=== PATIENT | male | born 1940 | race Caucasian/White ===

== ENCOUNTER → 2016-11-20 | Outpatient (CLI) | payer MEDICARE | END | disposition home or self-care (01) | LOC: CFH 09:21 | PROVIDERS: ATTEND Internal Medicine Cardiovascular Disease | DX: I08.0 Rheumatic disorders of both mitral and aortic valves (principal); I10 Essential (primary) hypertension; E78.5 Hyperlipidemia, unspecified; I25.2 Old myocardial infarction; Z86.73 Personal history of transient ischemic attack (TIA), and cerebral infarction without residual deficits; Z99.2 Dependence on renal dialysis | CPT/HCPCS: 93306 ==

== ENCOUNTER → 2017-11-05 | Outpatient (CLI) | payer MEDICARE | END | disposition home or self-care (01) | LOC: CFH 13:16 | PROVIDERS: ATTEND Nurse Practitioner Primary Care | DX: M19.042 Primary osteoarthritis, left hand (principal); M19.041 Primary osteoarthritis, right hand; M25.742 Osteophyte, left hand; M25.741 Osteophyte, right hand; E55.9 Vitamin D deficiency, unspecified; E78.2 Mixed hyperlipidemia; I12.9 Hypertensive chronic kidney disease with stage 1 through stage 4 chronic kidney disease, or unspecified chronic kidney disease; N18.9 Chronic kidney disease, unspecified; Z79.899 Other long term (current) drug therapy; I25.10 Atherosclerotic heart disease of native coronary artery without angina pectoris; Z86.73 Personal history of transient ischemic attack (TIA), and cerebral infarction without residual deficits ==

== ENCOUNTER → 2017-11-17 | Outpatient (CLI) | payer MEDICARE ==
[~2017-11-17] MED LIST: REGADENOSON 0.4 MG/5 ML SYRINGE ONE
== END ==
LOC: CFH 07:36
PROVIDERS: ATTEND Internal Medicine Cardiovascular Disease
DX: Z02.9 Encounter for administrative examinations, unspecified (principal)
CPT/HCPCS: J2785

== ENCOUNTER → 2018-07-11 | Outpatient (CLI) | payer MEDICARE | END | disposition home or self-care (01) | LOC: CFH 06:59 | PROVIDERS: ATTEND Nurse Practitioner Primary Care | DX: K82.4 Cholesterolosis of gallbladder (principal); E03.9 Hypothyroidism, unspecified; E55.9 Vitamin D deficiency, unspecified; E78.2 Mixed hyperlipidemia; I12.9 Hypertensive chronic kidney disease with stage 1 through stage 4 chronic kidney disease, or unspecified chronic kidney disease; N18.9 Chronic kidney disease, unspecified; Z79.899 Other long term (current) drug therapy; Z87.891 Personal history of nicotine dependence | CPT/HCPCS: 76700 ==

== ENCOUNTER 2018-07-23 11:30 | Emergency (ER) | payer MEDICARE ==
[~2018-07-23] VITALS: Ht 172.7 cm; Wt 77.0 kg
[2018-07-23 12:31] LABS: BASOPHILS % (AUTO) 0 % (0-1); EOSINOPHILS % (AUTO) 0 % (1-7); LYMPHOCYTES # (AUTO) 0.57 x10^3/uL (1-3.4); LYMPHOCYTES % (AUTO) 5 % (22-44); MD NO; MEAN CORPUSCULAR HEMOGLOBIN 29.5 pg (27.5-34.5); MEAN CORPUSCULAR HGB CONC 32.5 g/dL (33.2-36.2); MEAN CORPUSCULAR VOLUME 90.7 fL (81-97); MEAN PLATELET VOLUME 8.7 fL (7.4-10.4); MONOCYTES # (AUTO) 0.78 x10^3/uL (0.2-0.8); MONOCYTES % (AUTO) 7 % (2-9); NEUTROPHILS # (AUTO) 9.69 x10^3/uL (1.8-6.8); NEUTROPHILS % (AUTO) 88 % (42-75); PLATELET COUNT 183 x10^3/uL (130-400); RED BLOOD COUNT 4.71 x10^6/uL (4.38-5.82)
[2018-07-23 12:42] LABS: ALANINE AMINOTRANSFERASE 28 U/L (12-78); ALBUMIN 3.5 g/dL (3.4-5.0); ANION GAP 9 mmol/L (5-15); CALCIUM 9.7 mg/dL (8.5-10.1); CHLORIDE 98 mmol/L (98-107); CREATININE 2.65 mg/dL (0.7-1.3); INTERNATIONAL NORMALIZED RATIO 0.96 (0.93-1.1); PROTHROMBIN TIME 10.1 Seconds (9.6-11.5)
[2018-07-23 12:46] LABS: ALKALINE PHOSPHATASE 99 U/L (45-117); BILIRUBIN,TOTAL 0.6 mg/dL (0.2-1.0); TROPONIN I 0.051 ng/mL (0.000-0.045)
--- NOTE | 2018-07-23 13:47 | NUR ---
unable to obtain accurate med list from pt at this time. med rec not completed.
[2018-07-23] MEDS ORDERED: ALBUTEROL/IPRATROPIUM 2.5MG/0.5MG, 3 ML NPPB ONE (14:00)
[2018-07-23] MEDS ORDERED: ALBUTEROL/IPRATROPIUM 2.5MG/0.5MG, 3 ML ONE (14:55)
--- NOTE | 2018-07-23 14:56 | NUR ---
rt in room now
[2018-07-23 15:11] VITALS: BP 112/61
--- NOTE | 2018-07-23 15:12 | NUR ---
pt informed this rn that he wears o2 at home around 3/4 of the time. md made aware of this pt up for recheck
== END 2018-07-23 16:13 | disposition home or self-care (01) ==
LOC: ED 12:41
DX: J47.9 Bronchiectasis, uncomplicated (principal); R06.00 Dyspnea, unspecified; I10 Essential (primary) hypertension
CPT/HCPCS: 36415; 71046; 71260; 80053; 83880; 84484; 85025; 85610; 85730; 93005; 94640; 99284

== ENCOUNTER 2018-08-13 15:08 | Outpatient (CLI) | payer MEDICARE | END 2018-08-13 23:59 | disposition home or self-care (01) | LOC: CFH 15:08 | PROVIDERS: ATTEND Nurse Practitioner Primary Care | DX: R05 Cough (principal); R06.02 Shortness of breath | CPT/HCPCS: 71046 ==

== ENCOUNTER 2018-09-09 06:43 | Day surgery (SDC) | payer MEDICARE ==
[~2018-09-09] VITALS: Ht 172.7 cm; Wt 80.9 kg
[2018-09-09] MEDS ORDERED: SODIUM CHLORIDE 0.9% 1,000 ML IV SCH (07:09)
[2018-09-09] MEDS ORDERED: ASPIRIN 325 MG TABLET EC PO ONE (07:30)
[2018-09-09] MEDS ORDERED: PLEASE ENTER HEIGHT AND WEIGHT MC SCH (07:30)
[2018-09-09 07:31] VITALS: BP 116/58
[2018-09-09] MEDS ORDERED: Vitamin B PO (07:31)
[2018-09-09] MEDS ORDERED: RANO500T2 PO (07:31)
[2018-09-09] MEDS ORDERED: METO25TA91 PO (07:31)
[2018-09-09] MEDS ORDERED: ISOS120T4 PO (07:31)
[2018-09-09] MEDS ORDERED: NITR0.4T28 SL (07:31)
[2018-09-09] MEDS ORDERED: ATOR40TA78 PO (07:31)
[2018-09-09] MEDS ORDERED: ASPI81TA45 PO (07:31)
[2018-09-09] MEDS ORDERED: ASPIRIN 325 MG TABLET EC ONE (07:37)
[2018-09-09 07:59] LABS: BASOPHILS # (AUTO) 0.06 x10^3/uL (0-0.1); BASOPHILS % (AUTO) 1 % (0-1); EOSINOPHILS # (AUTO) 0.08 x10^3/uL (0-0.4); EOSINOPHILS % (AUTO) 1 % (1-7); LYMPHOCYTES # (AUTO) 1.04 x10^3/uL (1-3.4); LYMPHOCYTES % (AUTO) 14 % (22-44); MD NO; MEAN CORPUSCULAR HEMOGLOBIN 30.1 pg (27.5-34.5); MEAN CORPUSCULAR HGB CONC 31.8 g/dL (33.2-36.2); MEAN CORPUSCULAR VOLUME 94.8 fL (81-97); MONOCYTES # (AUTO) 0.64 x10^3/uL (0.2-0.8); MONOCYTES % (AUTO) 9 % (2-9); NEUTROPHILS % (AUTO) 76 % (42-75); PLATELET COUNT 204 x10^3/uL (130-400); RED BLOOD COUNT 3.83 x10^6/uL (4.38-5.82); RED CELL DISTRIBUTION WIDTH 17.2 % (9.4-14.8)
[2018-09-09 08:09] LABS: ANION GAP 7 mmol/L (5-15); CALCIUM 9.2 mg/dL (8.5-10.1); CHLORIDE 103 mmol/L (98-107); CREATININE 3.89 mg/dL (0.7-1.3)
[2018-09-09] MEDS ORDERED: MIDAZOLAM 1 MG/ML, 2ML ONE (08:56)
[2018-09-09] MEDS ORDERED: FENTANYL PF 100 MCG/2ML ONE (08:56)
[2018-09-09] MEDS ORDERED: LIDOCAINE 1%, 20ML ONE (08:56)
[2018-09-09] MEDS ORDERED: BIVALIRUDIN 250 MG ONE (09:32)
[2018-09-09] MEDS ORDERED: TICAGRELOR 90 MG TABLET ONE (09:32)
[2018-09-09] MEDS ORDERED: VERAPAMIL 2.5 MG/ML, 2ML ONE (10:34)
[2018-09-09] MEDS ORDERED: HEPARIN 1,000 UNITS/ML, 10ML ONE (10:34)
== END 2018-09-09 14:58 | disposition home or self-care (01) ==
LOC: CACL 06:43
PROVIDERS: ATTEND Internal Medicine Cardiovascular Disease
DX: I25.118 Atherosclerotic heart disease of native coronary artery with other forms of angina pectoris (principal); I25.2 Old myocardial infarction; E78.00 Pure hypercholesterolemia, unspecified; I12.9 Hypertensive chronic kidney disease with stage 1 through stage 4 chronic kidney disease, or unspecified chronic kidney disease; E11.22 Type 2 diabetes mellitus with diabetic chronic kidney disease; N18.4 Chronic kidney disease, stage 4 (severe); Z87.891 Personal history of nicotine dependence; Z79.82 Long term (current) use of aspirin; Z79.84 Long term (current) use of oral hypoglycemic drugs
CPT/HCPCS: 36415; 80048; 85025; 92943; 93454; 99156; 99157; C1725; C1760; C1769; C1887; C1894; J0583; J2250; J3010; Q9967; 92920; J1644; 92928

== ENCOUNTER 2019-06-13 14:18 | Inpatient (IN) | payer MEDICARE ==
[~2019-06-13] VITALS: Ht 172.7 cm; Wt 87.6 kg
[~2019-06-13 14:18] MED LIST changes: +ASPI81TA45 PO; +ATOR40TA78 PO; +ISOS120T4 PO; +METO25TA91 PO; +NITR0.4T28 SL; +PROSTATE MED PO; +RANO500T2 PO; -REGADENOSON 0.4 MG/5 ML SYRINGE ONE; +Vitamin B PO
--- NOTE | 2019-06-13 15:20 | NUR ---
PT WC'D TO ROOM 15 W/ C/O R LEG NECROSIS. PT WAS SEEN AT [facility] AND WAS SENT OVER FOR NECROTIC BIG TOE. REDNESS AND OPEN WOUNDS TO TOES AND TOP OF FOOT. DOPPLER ULTRASOUND DID NOT HEAR PEDAL PULSE. WAS ABLE TO FEEL POPLITEAL PULSE. PT NOTED TO HAVE 2+ PITTING EDEMA TO R FOOT. PT DENIES PAIN. CAN STILL FEEL TOUCH/COLDNESS IN FOOT. PT ALSO STATES HE DOES DIALYSIS 2X/WEEK BUT HAS NOT DONE DIALYSIS X 10 DAYS SECONDARY TO AMBULATORY ISSUES W/ FOOT. PT RESTING ON GURNEY. NADN. VSS. MONITORS APPLIED. WARM BLANKET PROVIDED.
--- NOTE | 2019-06-13 15:24 | NUR ---
SPOKE Greta SHAH WHO IS AWARE PT NEEDS SECOND SET OF BLOOD CULTURES DRAWN.
[2019-06-13 15:37] LABS: BASOPHILS % (AUTO) 0 % (0-1); EOSINOPHILS # (AUTO) 0.07 x10^3/uL (0-0.4); EOSINOPHILS % (AUTO) 1 % (1-7); HCT (SEDRATE) 28.1 % (39.2-51.8); LYMPHOCYTES # (AUTO) 0.54 x10^3/uL (1-3.4); LYMPHOCYTES % (AUTO) 8 % (22-44); MD NO; MEAN CORPUSCULAR HEMOGLOBIN 29.4 pg (27.5-34.5); MEAN CORPUSCULAR HGB CONC 32.2 g/dL (33.2-36.2); MEAN CORPUSCULAR VOLUME 91.2 fL (81-97); MEAN PLATELET VOLUME 8.2 fL (7.4-10.4); MONOCYTES # (AUTO) 0.65 x10^3/uL (0.2-0.8); MONOCYTES % (AUTO) 10 % (2-9); NEUTROPHILS % (AUTO) 81 % (42-75); PLATELET COUNT 226 x10^3/uL (130-400); RED CELL DISTRIBUTION WIDTH 18.4 % (9.4-14.8)
[2019-06-13 15:39] LABS: ANION GAP 8 mmol/L (5-15); CHLORIDE 106 mmol/L (98-107)
--- NOTE | 2019-06-13 15:52 | NUR ---
PT RESTING ON GURNEY. NADN. STONE.
[2019-06-13] MEDS ORDERED: CEFAZOLIN PMX 1GM/50ML 50 ML ONE (16:24)
--- NOTE | 2019-06-13 16:45 | NUR ---
PT RESTING ON KALEY. NADN. BENNETTS. PT AWARE OF POC FOR ADMIT.
[2019-06-13] MEDS ORDERED: CEFAZOLIN PMX 1GM/50ML 50 ML IV ONE (17:00)
[2019-06-13] MEDS ORDERED: SODIUM CHLORIDE FLUSH 10ML SYR IVF PRN (17:30)
--- NOTE | 2019-06-13 17:53 | NUR ---
PT RESTING ON GURNEY. NADN. STONE.
--- NOTE | 2019-06-13 18:36 | NUR ---
PT C/O BACK PAIN. PT MOVED TO HOSPITAL BED FROM [facility].
--- NOTE | 2019-06-13 18:50 | NUR ---
REPORT GIVEN TO JAMES, ROMA RN. ALL QUESTIONS ANSWERED. AWAITING PT TRANSPORT.
[2019-06-13] MEDS ORDERED: NITROGLYCERIN SINGLE TAB 0.4 MG SL PRN (19:00)
[2019-06-13] MEDS ORDERED: BISACODYL 10 MG SUPP PR PRN (19:30)
[2019-06-13] MEDS ORDERED: ACETAMINOPHEN 325 MG TABLET PO PRN (19:30)
[2019-06-13] MEDS ORDERED: ONDANSETRON ODT 4 MG PO PRN (19:30)
[2019-06-13] MEDS: ATORVASTATIN 40 MG TABLET PO SCH (21:08)
[2019-06-13] MEDS: RANOLAZINE 500 MG TAB.ER.12H PO SCH (21:08)
[2019-06-13] MEDS: HEPARIN 5,000 UNITS/ML, 1ML SQ SCH (21:08)
[2019-06-13] MEDS: SODIUM CHLORIDE FLUSH 10ML SYR IVF SCH (21:08)
[2019-06-13 22:03] VITALS: BP 112/67
[2019-06-13] MEDS: OXYcodone IR 5MG TABLET PO PRN (22:25)
[2019-06-14 00:43] VITALS: BP 115/71
[2019-06-14] MEDS: OXYcodone IR 5MG TABLET PO PRN (02:31)
[2019-06-14] MEDS: HEPARIN 5,000 UNITS/ML, 1ML SQ SCH ×3 (03:30→20:14)
[2019-06-14 06:06] LABS: BASOPHILS # (AUTO) 0.02 x10^3/uL (0-0.1); BASOPHILS % (AUTO) 0 % (0-1); EOSINOPHILS # (AUTO) 0.22 x10^3/uL (0-0.4); EOSINOPHILS % (AUTO) 4 % (1-7); LYMPHOCYTES # (AUTO) 0.65 x10^3/uL (1-3.4); LYMPHOCYTES % (AUTO) 12 % (22-44); MD NO; MEAN CORPUSCULAR HEMOGLOBIN 29.9 pg (27.5-34.5); MEAN CORPUSCULAR VOLUME 90.5 fL (81-97); MEAN PLATELET VOLUME 8.3 fL (7.4-10.4); MONOCYTES # (AUTO) 0.59 x10^3/uL (0.2-0.8); MONOCYTES % (AUTO) 11 % (2-9); NEUTROPHILS # (AUTO) 3.87 x10^3/uL (1.8-6.8); NEUTROPHILS % (AUTO) 72 % (42-75); PLATELET COUNT 225 x10^3/uL (130-400); RED BLOOD COUNT 2.79 x10^6/uL (4.38-5.82); RED CELL DISTRIBUTION WIDTH 18.1 % (9.4-14.8)
[2019-06-14 06:09] LABS: ANION GAP 11 mmol/L (5-15); CALCIUM 8.8 mg/dL (8.5-10.1); CHLORIDE 109 mmol/L (98-107)
[2019-06-14 06:11] LABS: CREATININE 7.06 mg/dL (0.7-1.3)
[2019-06-14 06:55] VITALS: BP 115/63
[2019-06-14] MEDS: ISOSORBIDE MONONITRATE ER 60 MG TABLET PO SCH (09:07)
[2019-06-14] MEDS: ASPIRIN 81 MG TABLET EC PO SCH (09:08)
[2019-06-14] MEDS: SODIUM CHLORIDE FLUSH 10ML SYR IVF SCH ×2 (09:08→22:00)
[2019-06-14] MEDS: METOPROLOL SUCCINATE 25 MG TAB.ER.24H PO SCH (09:08)
[2019-06-14] MEDS: SENNA/DOCUSATE TABLET PO SCH (09:08)
[2019-06-14] MEDS: RANOLAZINE 500 MG TAB.ER.12H PO SCH ×2 (09:08→22:00)
[2019-06-14] MEDS ORDERED: SODIUM CHLORIDE 0.9% 1,000 ML IV SCH (09:30)
[2019-06-14 12:13] VITALS: BP 106/66
[2019-06-14 19:31] VITALS: BP 100/60
[2019-06-14] MEDS: POLYETHYLENE GLYCOL 17 GM PACKET PO PRN (20:13)
[2019-06-14] MEDS: ACETAMINOPHEN 325 MG TABLET PO PRN (20:14)
[2019-06-14] MEDS: ATORVASTATIN 40 MG TABLET PO SCH (22:00)
[2019-06-15] VITALS (8 sets, daily range): BP systolic 83–129; BP diastolic 49–71
[2019-06-15] MEDS: HEPARIN 5,000 UNITS/ML, 1ML SQ SCH ×3 (03:48→22:38)
[2019-06-15] MEDS: ACETAMINOPHEN 325 MG TABLET PO PRN ×2 (03:52→22:38)
[2019-06-15 06:32] LABS: BASOPHILS % (AUTO) 0 % (0-1); EOSINOPHILS # (AUTO) 0.17 x10^3/uL (0-0.4); EOSINOPHILS % (AUTO) 3 % (1-7); LYMPHOCYTES # (AUTO) 0.75 x10^3/uL (1-3.4); LYMPHOCYTES % (AUTO) 13 % (22-44); MD NO; MEAN CORPUSCULAR HEMOGLOBIN 29.6 pg (27.5-34.5); MEAN CORPUSCULAR HGB CONC 32.4 g/dL (33.2-36.2); MEAN CORPUSCULAR VOLUME 91.4 fL (81-97); MONOCYTES # (AUTO) 0.64 x10^3/uL (0.2-0.8); MONOCYTES % (AUTO) 11 % (2-9); NEUTROPHILS % (AUTO) 74 % (42-75); PLATELET COUNT 218 x10^3/uL (130-400); RED BLOOD COUNT 2.85 x10^6/uL (4.38-5.82); RED CELL DISTRIBUTION WIDTH 18.6 % (9.4-14.8)
[2019-06-15 06:42] LABS: % IRON SATURATION 8 % (20-55); IRON LEVEL 18 mcg/dL (65-175); TOTAL IRON BINDING CAPACITY 221 mcg/dL (250-450)
[2019-06-15] MEDS: SENNA/DOCUSATE TABLET PO SCH (14:22)
[2019-06-15] MEDS: ASPIRIN 81 MG TABLET EC PO SCH (14:22)
[2019-06-15] MEDS: RANOLAZINE 500 MG TAB.ER.12H PO SCH ×2 (14:22→22:20)
[2019-06-15] MEDS: SODIUM CHLORIDE FLUSH 10ML SYR IVF SCH ×2 (14:23→21:33)
[2019-06-15] MEDS: ISOSORBIDE MONONITRATE ER 60 MG TABLET PO SCH (14:23)
[2019-06-15] MEDS: METOPROLOL SUCCINATE 25 MG TAB.ER.24H PO SCH (14:23)
[2019-06-15] MEDS: FERROUS SULFATE 325 MG TABLET PO SCH (14:23)
[2019-06-15] MEDS ORDERED: SODIUM CHLORIDE 0.9% 1,000ML IVBOLUS ONE (21:30)
[2019-06-15] MEDS ORDERED: SODIUM CHLORIDE 0.9% 1,000 ML IV SCH (21:30)
[2019-06-15] MEDS: ATORVASTATIN 40 MG TABLET PO SCH (22:20)
[2019-06-16 01:06] VITALS: BP 95/58
[2019-06-16] MEDS: HEPARIN 5,000 UNITS/ML, 1ML SQ SCH ×3 (06:30→21:03)
[2019-06-16] MEDS ORDERED: FENTANYL PF 250 MCG/5ML ONE (08:10)
[2019-06-16] MEDS ORDERED: LIDOCAINE 2%, 20ML ONE (08:10)
[2019-06-16] MEDS ORDERED: PROPOFOL 10 MG/ML, 20ML ONE (08:10)
[2019-06-16 08:12] VITALS: BP 105/68
[2019-06-16] MEDS ORDERED: MIDAZOLAM 1 MG/ML, 5ML ONE (08:31)
[2019-06-16] MEDS ORDERED: FENTANYL PF 100 MCG/2ML ONE (08:31)
[2019-06-16] MEDS ORDERED: FLUMAZENIL 0.1 MG/1 ML, 5ML ONE (08:32)
[2019-06-16] MEDS ORDERED: PROTAMINE SULFATE 10 MG/ML, 25ML ONE (08:32)
[2019-06-16] MEDS ORDERED: NALOXONE 1 MG/ML, 2ML ONE (08:32)
[2019-06-16] MEDS ORDERED: HEPARIN 1,000 UNITS/ML, 10ML ONE (08:32)
[2019-06-16] MEDS: ASPIRIN 81 MG TABLET EC PO SCH ×2 (09:00→15:59)
[2019-06-16] MEDS: METOPROLOL SUCCINATE 25 MG TAB.ER.24H PO SCH (09:00)
[2019-06-16] MEDS: ISOSORBIDE MONONITRATE ER 60 MG TABLET PO SCH (09:00)
[2019-06-16] MEDS: SODIUM CHLORIDE FLUSH 10ML SYR IVF SCH ×2 (09:00→21:03)
[2019-06-16] MEDS: RANOLAZINE 500 MG TAB.ER.12H PO SCH ×2 (09:00→21:03)
[2019-06-16] MEDS: SENNA/DOCUSATE TABLET PO SCH (09:00)
[2019-06-16] MEDS ORDERED: NITROGLYCERIN 5 MG/ML, 10ML ONE (10:08)
[2019-06-16 13:47] VITALS: BP 120/60
[2019-06-16 20:00] VITALS: BP 113/75
[2019-06-16] MEDS: ATORVASTATIN 40 MG TABLET PO SCH (21:03)
[2019-06-16] MEDS: POLYETHYLENE GLYCOL 17 GM PACKET PO PRN (21:03)
[2019-06-17 01:00] VITALS: BP 99/59
[2019-06-17] MEDS: HEPARIN 5,000 UNITS/ML, 1ML SQ SCH ×3 (05:20→21:28)
[2019-06-17 06:10] VITALS: BP 117/64
[2019-06-17] MEDS: METOPROLOL SUCCINATE 25 MG TAB.ER.24H PO SCH (06:10)
[2019-06-17] MEDS ORDERED: PROPOFOL 50 ML ONE (07:28)
[2019-06-17] MEDS ORDERED: MIDAZOLAM 1 MG/ML, 2ML ONE (07:28)
[2019-06-17] MEDS ORDERED: FENTANYL PF 250 MCG/5ML ONE (07:29)
[2019-06-17] MEDS ORDERED: EPHEDRINE 50 MG/ML, 1ML IM PRN (08:30)
[2019-06-17] MEDS ORDERED: MORPHINE SULFATE 4 MG/ML, 1ML IVPush PRN (08:30)
[2019-06-17] MEDS ORDERED: PROMETHAZINE 25 MG/ML, 1ML IV PRN (08:30)
[2019-06-17] MEDS ORDERED: DIAZEPAM 5 MG/ML, 2ML IVPush PRN (08:30)
[2019-06-17] MEDS ORDERED: OXYcodone 5 MG/5 ML ORAL.SOL UDC PO PRN (08:30)
[2019-06-17] MEDS ORDERED: ONDANSETRON ODT 8 MG PO PRN (08:30)
[2019-06-17] MEDS ORDERED: ONDANSETRON 2MG/ML, 2ML IV PRN (08:30)
[2019-06-17] MEDS ORDERED: EPHEDRINE 50 MG/ML, 1ML IVPush PRN (08:30)
[2019-06-17] MEDS ORDERED: OXYcodone 5 MG/5 ML ORAL.SOL UDC ONE (08:51)
[2019-06-17] MEDS ORDERED: FENTANYL PF 100 MCG/2ML ONE (08:51)
[2019-06-17] MEDS: FENTANYL PF 100 MCG/2ML IV PRN ×3 (08:55→09:21)
[2019-06-17] MEDS ORDERED: ARANESP 60 MCG/ML **ESRD SQ SCH (09:00)
[2019-06-17] MEDS: SODIUM CHLORIDE FLUSH 10ML SYR IVF SCH ×2 (11:11→21:27)
[2019-06-17] MEDS: SENNA/DOCUSATE TABLET PO SCH (11:12)
[2019-06-17] MEDS: OXYcodone IR 5MG TABLET PO PRN ×3 (11:21→21:28)
[2019-06-17 13:41] VITALS: BP 122/80
[2019-06-17] MEDS: ACETAMINOPHEN 325 MG TABLET PO PRN ×2 (13:57→23:07)
[2019-06-17] MEDS: FERROUS SULFATE 325 MG TABLET PO SCH (13:57)
[2019-06-17] MEDS: RANOLAZINE 500 MG TAB.ER.12H PO SCH ×2 (13:58→21:27)
[2019-06-17] MEDS: ISOSORBIDE MONONITRATE ER 60 MG TABLET PO SCH (13:58)
[2019-06-17 19:53] VITALS: BP 99/53
[2019-06-17] MEDS: ATORVASTATIN 40 MG TABLET PO SCH (21:27)
[2019-06-18] VITALS: BP 95/55
[2019-06-18 04:00] VITALS: BP 124/74
[2019-06-18] MEDS: HEPARIN 5,000 UNITS/ML, 1ML SQ SCH ×3 (06:41→21:20)
[2019-06-18] MEDS: OXYcodone IR 5MG TABLET PO PRN ×3 (06:41→21:20)
[2019-06-18 08:58] VITALS: BP 101/61
[2019-06-18] MEDS: SODIUM CHLORIDE FLUSH 10ML SYR IVF SCH ×2 (09:00→20:22)
[2019-06-18] MEDS: METOPROLOL SUCCINATE 25 MG TAB.ER.24H PO SCH (09:10)
[2019-06-18] MEDS: SENNA/DOCUSATE TABLET PO SCH (09:10)
[2019-06-18] MEDS: ASPIRIN 81 MG TABLET EC PO SCH (09:10)
[2019-06-18] MEDS: ISOSORBIDE MONONITRATE ER 60 MG TABLET PO SCH (09:10)
[2019-06-18] MEDS: RANOLAZINE 500 MG TAB.ER.12H PO SCH ×2 (09:10→20:20)
[2019-06-18 14:45] VITALS: BP 104/65
[2019-06-18 20:10] VITALS: BP 104/63
[2019-06-18] MEDS: ATORVASTATIN 40 MG TABLET PO SCH (20:20)
[2019-06-19 01:27] VITALS: BP 125/71
[2019-06-19] MEDS: HEPARIN 5,000 UNITS/ML, 1ML SQ SCH ×2 (05:27→15:46)
[2019-06-19 06:34] LABS: BASOPHILS # (AUTO) 0.01 x10^3/uL (0-0.1); BASOPHILS % (AUTO) 0 % (0-1); EOSINOPHILS % (AUTO) 0 % (1-7); LYMPHOCYTES # (AUTO) 0.65 x10^3/uL (1-3.4); LYMPHOCYTES % (AUTO) 10 % (22-44); MD NO; MEAN CORPUSCULAR HEMOGLOBIN 29.1 pg (27.5-34.5); MEAN CORPUSCULAR HGB CONC 31.7 g/dL (33.2-36.2); MEAN CORPUSCULAR VOLUME 91.9 fL (81-97); MEAN PLATELET VOLUME 8.3 fL (7.4-10.4); MONOCYTES # (AUTO) 0.78 x10^3/uL (0.2-0.8); MONOCYTES % (AUTO) 12 % (2-9); NEUTROPHILS # (AUTO) 5.36 x10^3/uL (1.8-6.8); NEUTROPHILS % (AUTO) 79 % (42-75); PLATELET COUNT 197 x10^3/uL (130-400); RED BLOOD COUNT 2.95 x10^6/uL (4.38-5.82); RED CELL DISTRIBUTION WIDTH 17.9 % (9.4-14.8)
[2019-06-19 06:41] LABS: ANION GAP 11 mmol/L (5-15); CALCIUM 8.4 mg/dL (8.5-10.1); CHLORIDE 99 mmol/L (98-107); CREATININE 5.58 mg/dL (0.7-1.3)
[2019-06-19 06:56] VITALS: BP 104/65
[2019-06-19] MEDS ORDERED: POLYETHYLENE GLYCOL 17 GM PACKET PO SCH (08:30)
[2019-06-19] MEDS ORDERED: GLYCERIN ADULT SUPP PR ONE (08:30)
[2019-06-19] MEDS: METOPROLOL SUCCINATE 25 MG TAB.ER.24H PO SCH (08:45)
[2019-06-19] MEDS: RANOLAZINE 500 MG TAB.ER.12H PO SCH (08:45)
[2019-06-19] MEDS: FERROUS SULFATE 325 MG TABLET PO SCH (08:46)
[2019-06-19] MEDS: ISOSORBIDE MONONITRATE ER 60 MG TABLET PO SCH (08:46)
[2019-06-19] MEDS: ASPIRIN 81 MG TABLET EC PO SCH (08:47)
[2019-06-19] MEDS: SENNA/DOCUSATE TABLET PO SCH (08:47)
[2019-06-19] MEDS: SODIUM CHLORIDE FLUSH 10ML SYR IVF SCH (08:48)
[2019-06-19 12:32] VITALS: BP 97/61
[2019-06-19] MEDS ORDERED: ACET325T26 PO (14:09)
[2019-06-19] MEDS ORDERED: BISA10SU4 PR (14:09)
[2019-06-19] MEDS ORDERED: FERR-51 PO (14:09)
[2019-06-19] MEDS ORDERED: SENN-193 PO (14:09)
[2019-06-19] MEDS ORDERED: POLY17PO5 PO (14:09)
[2019-06-19] MEDS ORDERED: OXYC5TAB3 PO (14:09)
[2019-06-19] MEDS: OXYcodone IR 5MG TABLET PO PRN (17:12)
== END 2019-06-19 17:32 | DRG 239 ==
LOC: ED 16:37 → EDIP 17:13 → 4EST 19:26
PROVIDERS: ADMIT Internal Medicine; ATTEND Hospitalist
PROC: 5A1D70Z Performance of Urinary Filtration, Intermittent, Less than 6 Hours Per Day (ICD-10-PCS; 2019-06-15)
PROC: 047R3ZZ Dilation of Right Posterior Tibial Artery, Percutaneous Approach (ICD-10-PCS; 2019-06-16)
PROC: B41F1ZZ Fluoroscopy of Right Lower Extremity Arteries using Low Osmolar Contrast (ICD-10-PCS; 2019-06-16)
PROC: B3101ZZ Fluoroscopy of Thoracic Aorta using Low Osmolar Contrast (ICD-10-PCS; 2019-06-16)
PROC: 5A1D70Z Performance of Urinary Filtration, Intermittent, Less than 6 Hours Per Day (ICD-10-PCS; 2019-06-17)
PROC: 0Y6H0Z1 Detachment at Right Lower Leg, High, Open Approach (ICD-10-PCS; principal; 2019-06-17 07:30)
DX: E11.52 Type 2 diabetes mellitus with diabetic peripheral angiopathy with gangrene (principal); N18.6 End stage renal disease; I70.261 Atherosclerosis of native arteries of extremities with gangrene, right leg; I12.0 Hypertensive chronic kidney disease with stage 5 chronic kidney disease or end stage renal disease; S82.61XA Displaced fracture of lateral malleolus of right fibula, initial encounter for closed fracture; D63.1 Anemia in chronic kidney disease; E11.22 Type 2 diabetes mellitus with diabetic chronic kidney disease; E78.5 Hyperlipidemia, unspecified; G47.00 Insomnia, unspecified; I25.10 Atherosclerotic heart disease of native coronary artery without angina pectoris; I25.2 Old myocardial infarction; K59.00 Constipation, unspecified; N25.0 Renal osteodystrophy; Z82.49 Family history of ischemic heart disease and other diseases of the circulatory system; Z86.73 Personal history of transient ischemic attack (TIA), and cerebral infarction without residual deficits; Z91.15 Patient's noncompliance with renal dialysis; Z96.653 Presence of artificial knee joint, bilateral; Z99.2 Dependence on renal dialysis
CPT/HCPCS: 36415; 37228; 71045; 74018; 75630; 80048; 82040; 83540; 83550; 83605; 85025; 85651; 86140; 86705; 86706; 87040; 87340; 88307; 88311; 93005; 93922; 93925; 96365; 96366; 99156; 99157; C1725; G0378; J0690; J0882; J1644; J2250; J2704; J2720; J3010; C1751; C1760; C1769; C1894; J2310; J7030